=== PATIENT | male | born 2000 | race Caucasian/White ===

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

== ENCOUNTER 2023-03-04 20:20 | Emergency (ER) | payer OTHER ==
[~2023-03-04] VITALS: Ht 165.1 cm; Wt 77.1 kg
[2023-03-04] MEDS ORDERED: Bactroban Oint22 GM T (22:08)
== END 2023-03-04 22:13 | disposition home or self-care (01) ==
LOC: ED 20:20
DX: L73.9 Follicular disorder, unspecified (principal); F32.A Depression, unspecified; F41.9 Anxiety disorder, unspecified; Z90.89 Acquired absence of other organs; Z98.890 Other specified postprocedural states

== ENCOUNTER 2023-03-24 16:47 | Emergency (ER) | payer OTHER ==
[~2023-03-24] VITALS: Wt 83.0 kg
[~2023-03-24 16:47] MED LIST changes: +Bactroban Oint22 GM T
== END 2023-03-24 17:00 | disposition left against medical advice (07) ==
LOC: ED 16:47
DX: H57.89 Other specified disorders of eye and adnexa (principal); Z53.21 Procedure and treatment not carried out due to patient leaving prior to being seen by health care provider

== ENCOUNTER 2023-03-24 21:08 | Emergency (ER) | payer SELFPAY | END 2023-03-24 23:19 | disposition left against medical advice (07) | LOC: ED 21:08 | DX: H57.89 Other specified disorders of eye and adnexa (principal); Z53.21 Procedure and treatment not carried out due to patient leaving prior to being seen by health care provider ==